=== PATIENT | female | born 2005 | race Caucasian/White ===

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

== ENCOUNTER → 2024-07-19 | Outpatient (CLI) | payer OTHER, SELFPAY ==
[2024-07-22 20:07] LABS: Chlamydia By Nucleic Acid AMP Negative (Negative); Gonococcus By Nucleic Acid AMP Negative (Negative)
== END | disposition home or self-care (01) ==
LOC: LABSPEC 10:30
PROVIDERS: PCP Pediatrics; Referring Provider Registered Nurse; Visit Provider Registered Nurse
DX: Z20.2 Contact with and (suspected) exposure to infections with a predominantly sexual mode of transmission (principal)
CPT/HCPCS: 87491; 87591

== ENCOUNTER → 2025-07-21 | Outpatient (CLI) | payer OTHER, SELFPAY ==
--- NOTE | 2025-07-21 09:40 | ECHOD_ITS ---
Reason For Study Reason For Study: SYNCOPE Procedure This was a 2D Doppler, Color Flow transthoracic echocardiogram. Exam performed in department. Left Ventricle Normal-sized left ventricle. Normal left ventricular wall thickness. Left ventricular EF by Tompkins's biplane: 55%. Normal diastolic function. No regional wall motion abnormalities noted. Right Ventricle Normal right ventricle. Normal systolic function. Unable to estimate RV systolic pressure due to insufficient tricuspid regurgitant envelope. Atria The left and right atria are normal. RVSP estimated: 3 mmHg. Normal atrial septum. Mitral Valve Normal mitral valve. Trace mitral regurgitation. No mitral stenosis. Tricuspid Valve Normal tricuspid valve. No tricuspid stenosis. Trace tricuspid regurgitation. Aortic Valve Trileaflet aortic valve. No hemodynamically significant aortic stenosis. No aortic regurgitation. Pulmonic Valve Normal pulmonic valve. No pulmonic stenosis. No pulmonic regurgitation. Great Vessels Normal aortic root. Normal ascending aorta. Pericardium/Pleural No pericardial effusion. MMode/2D Measurements & Calculations LVIDd: 4.7 cm IVSd: 0.72 cm Ao root diam: 2.4 cm LVIDs: 3.0 cm LVPWd: 0.62 cm FS: 36.9 % LAV(MOD-sp4): 11.5 ml LVAd ap4: 21.5 cm2 SV(MOD-sp4): 31.2 ml LVLd ap4: 6.8 cm SI(MOD-sp4): 19.8 ml/m2 EDV(MOD-sp4): 56.2 ml EDV(sp4-el): 57.7 ml LVAs ap4: 13.0 cm2 LVLs ap4: 5.6 cm ESV(MOD-sp4): 25.1 ml ESV(sp4-el): 25.6 ml EF(MOD-sp4): 55.4 % EF(sp4-el): 55.7 % SV(sp4-el): 32.1 ml LA A4 area: 7.7 cm2 LA dimension(2D): 2.0 cm RA A4 area: 6.8 cm2 Time Measurements MV dec time: 0.11 sec Doppler Measurements & Calculations MV E max shayan: 85.7 cm/sec Lat Peak E' Shayan: 14.6 cm/sec Med Peak E' Shayan: 12.3 cm/sec MV A max shayan: 87.0 cm/sec E/E' lat: 5.9 E/E' med: 7.0 MV E/A: 0.99 MV V2 max: 94.6 cm/sec Ao V2 max: 105.5 cm/sec MV max P.6 mmHg MV dec slope: 767.2 cm/sec2 Ao max P.4 mmHg MV V2 mean: 61.2 cm/sec Ao V2 mean: 78.2 cm/sec MV mean P.8 mmHg Ao mean P.7 mmHg MV V2 VTI: 22.6 cm Ao V2 VTI: 22.0 cm AV (velocity ratio): 0.97 LV V1 max: 96.1 cm/sec PA V2 max: 121.9 cm/sec LV V1 max P.7 mmHg PA V2 mean: 82.8 cm/sec LV V1 mean P.1 mmHg LV V1 mean: 68.8 cm/sec LV V1 VTI: 21.4 cm ECHO/Echo Complete Interpretation Summary Normal left ventricular systolic function with EF by Tompkins's biplane: 55% Normal left ventricular diastolic function Normal left ventricular wall motion Normal right ventricular systolic function No hemodynamically significant valvular disease Ordering Physician: Arthur Beatty Referring Physician: Arthur Beatty Performed By: Solange Cantrell RCS
== END | disposition home or self-care (01) ==
LOC: CVS 09:39
PROVIDERS: PCP Pediatrics; Referring Provider Student in an Organized Health Care Education/Training Program; Visit Provider Student in an Organized Health Care Education/Training Program
DX: R55 Syncope and collapse (principal)
CPT/HCPCS: 93306